=== PATIENT | male | born 1955 | race Caucasian/White ===

== ENCOUNTER 2017-01-14 07:57 | Day surgery (SDC) | payer OTHER ==
[~2017-01-14] VITALS: Ht 182.9 cm; Wt 79.9 kg
[~2017-01-14 07:57] MED LIST: CYCL5TAB PO; LORT5TAB PO; Z.0.NO CURRENT MEDS
[2017-01-14 08:15] VITALS: BP 155/100; PULSE 87; RESP 16; TEMP 97.7; O2SAT 99
[2017-01-14] MEDS ORDERED: SODIUM CHLORID 0.9% 500 ML INJ 500 ML IV SCH (08:15)
[2017-01-14] MEDS ORDERED: LORazepam 1 MG TAB SL SCH (08:15)
[2017-01-14] MEDS ORDERED: POVIDONE IODINE 5% (ANTISEPSIS KIT) 4 APPLICATIONS EACH NARE PRN (08:30)
[2017-01-14] MEDS ORDERED: CHLORHEXIDINE GLUCONATE 2 % 1 PACK (2 CLOTHS) TOPICAL PRN (08:30)
[2017-01-14] MEDS ORDERED: SODIUM CHLORID 0.9% 500 ML IV PRN (08:30)
[2017-01-14] MEDS ORDERED: INSULIN HUMAN REGULAR 1,000 UNITS/10 ML VIAL SQ PRN (08:30)
[2017-01-14] MEDS ORDERED: METOPROLOL TARTRATE 25 MG TAB PO PRN (08:30)
[2017-01-14] MEDS ORDERED: LACTATED RINGER'S 1000 ML IV PRN (08:30)
[2017-01-14] MEDS ORDERED: VITA500T4 PO (08:47)
[2017-01-14] MEDS ORDERED: ATEN25TA PO (08:47)
[2017-01-14 09:13] LABS: BASOPHIL % 0.7 % (0.0-2.0); EOSINOPHIL # 0.4 TH/MM3 (0-0.4); EOSINOPHIL % 5.6 % (0.0-4.0); HEMATOCRIT 41.2 % (39.0-51.0); HEMO FLAGS DIFF FINAL; LYMPH % 24.6 % (9.0-44.0); LYMPHOCYTE # 1.6 TH/MM3 (1.0-4.8); MEAN CELL VOLUME 82.9 FL (80.0-100.0); MEAN CORPUSCULAR HEMOGLOBIN 26.8 PG (27.0-34.0); MEAN CORPUSCULAR HGB CONC 32.4 % (32.0-36.0); MONO % 9.2 % (0.0-8.0); NEUT % 59.9 % (16.0-70.0); PLATELET COUNT 205 TH/MM3 (150-450); RED BLOOD COUNT 4.97 MIL/MM3 (4.50-5.90); RED CELL DISTRIBUTION WIDTH 17.2 % (11.6-17.2); WHITE BLOOD COUNT 6.7 TH/MM3 (4.0-11.0)
[2017-01-14 09:21] LABS: APTT (PATIENT) 26.4 SEC (24.3-30.1); INTERNATIONAL NORMALIZED RATIO 0.9 RATIO
[2017-01-14 09:47] LABS: BICARBONATE 25.1 MEQ/L (21.0-32.0); POTASSIUM 4.2 MEQ/L (3.5-5.1)
[2017-01-14] MEDS ORDERED: PROPOFOL 200 MG/20 ML AMP IV ONE (11:20)
[2017-01-14] MEDS ORDERED: DO NOT ADM ANY ANTICOAGULANT DRUGS PRN (13:00)
--- NOTE | 2017-01-14 13:04 | CATHPROC ---
[email or web address] HIS Report Study Information Study Number Admission Scheduled Start Study Start [id number] Jan 14 2017 7:57AM 01/14/2017 Jan 14 2017 10:40AM [facility] Electrophysiology Study Admit Source Facility Department Other [facility] - Fabrication And Assembly Supervisor Physician and Clinical Staff Initial [employer] Teacher Victoria Muñoz,RT(R) TECH2 Other Anesthesia, STUNT PERSON Other Emily Fierro,BETSY Recorder Alfreda Nash RN [place] Palumbo,ALYSA Procedures Performed Procedure Location (Site) Vessel Name ICE CATHETER INSERT RA Atruim Equipment Time Grades 7 And 8 Visiting Teacher Description Size Mfg Part Number Used/Scraped [id number] 10:50 [employer] PACK, CCL CUSTOM * Used *[id number] 10:50 Fatwire PACER DO, LIMB * 2530 *[id number] Used 12:11 Easy-Point PACER SAFE SHEATH, FR6, 13CM FR 6 [id number] Used [id number] 10:50 [employer] BL[employer],WARM AIR CCL * Used *[id number] 10:51 [employer] MEDICAL CATHETER, JSN, QUAD FR 5 Used *[id number] 10:51 [employer] MEDICAL CATHETER, JSN, QUAD FR 5 Used *[id number] 12:12 [employer] MEDICAL CATHETER, JSN, QUAD FR 5 Used *[id number] 10:50 [employer]RI[employer] MEDICAL ELECTRODE KIT, MARGO X SURFACE * [id number] Used SHEATH, EPS, FR10 FAST CATH 11:43 [employer] MEDICAL FR 10 TRIO [id number] Used TRIO 11:43 [employer] MEDICAL SHEATH, EPS, FR4 FAST CATH FR 4 [id number] Used [id number] 10:51 [employer] MEDICAL SHEATH, EPS, FR5 FAST CATH FR 5 Used *[id number] 11:43 [employer] MEDICAL SHEATH, EPS, FR6 FAST CATH FR 6 [id number] Used 11:43 [employer] MEDICAL SHEATH, EPS, FR7 FAST CATH FR 7 [id number] Used 11:43 [employer] MED[employer] SHEATH, EPS, FR8 FAST CATH FR 8 [id number] Used CATHETER, ACUNAV FR10 ICE [id number] 12:14 TIMMY FR 10 Used (TIMMY) *[id number] [facility] PAD, ELECTROSURGICAL 10:50 * [id number] *[id number] Used SURGICAL GROUNDING (BLUE) Labs Hgb (g/dl) Hct (%) RBC (MIL/MM3) WBC (l/cumm) Platelets (thousands) 11.60-17.00 35.00-51.00 4.00-5.90 4.00-11.00 150.00-450.00 13.0 41 4.9 6.7 205 Glucose (mg/dl) BUN (mg/dl) Creatinine (mg/dl) BUN:Creatinine (1:x) 74.00-106.00 7.00-18.00 0.50-1.30 10.00-20.00 106 17 1.2 14.2 Na (meq/l) K (meq/l) 136.00-145.00 3.50-5.10 39 4.2 INR (PTT:PT) 0.90-1.10 0.9 Medication Medication Total Dose (Bolus/Oral) Medication Total Dosage/Unit 1% XYLOCAINE 40 mL Medications (Bolus/Oral) Medication Time Given Dosage/Unit Administered By Reason 1% XYLOCAINE 01/14/2017 12:00:52 PM 20 mL Brian Addison 20 mL 1% XYLOCAINE given in lab by Brian Addison in Left Groin via Subcutaneous. Ordered by Brian Addison. 1% XYLOCAINE 01/14/2017 12:06:17 PM 20 mL Brian Addison 20 mL 1% XYLOCAINE given in lab by Brian Addison in Right Groin via Subcutaneous. Ordered by Silas Addison. Medication (Drip) Medication Time Given Dosage/Unit Concentration/Unit Diluent (ml) Solution ISUPREL 01/14/2017 12:32:14 PM 2 mcg/min 1 mg 250 NaCl .9 2 mcg/min ISUPREL given in lab by Brian Addison via Peripheral IV. Pump/Drip Flow = 30 ml/hr using Na Cl .9 with a concentration of 1 mg in 250 ml. Ordered by Brian Addison. Initial Case Assessment Cardiovascular HR Rhythm NIBP Chest Pain 56 sr 167/87 0 Edema Present Skin None Warm Dry Circulatory - Right Pulses Dorsalis Pedis 2 Scale (0,1,2,3,4,d) Circulatory - Left Pulses Dorsalis Pedis 2 Scale (0,1,2,3,4,d) Circulatory - Lower Extremities Color Lower Right Color Lower Left Normal Normal Neurological State Oriented to time-place- Alert Moves all extremities person Respiration - General Respiration Rate SpO2 (%) (B/min) 20 100 Final Case Assessment Cardiovascular HR Rhythm NIBP Chest Pain 64 SR 131/69 0 Edema Present Skin color Skin None Normal Warm Dry Neurological State Oriented to time-place- Alert Moves all extremities person Respiration - General Respiration Rate SpO2 (%) O2 (lpm) (B/min) 18 100 4 Chronological Log Time Study Chronological Log 11:15:46 Patient arrived via Bed. 11:17:50 Patient Name, D.O.B, / Armband Verified By R.N. 11:17:51 Consent signed by the physician and the patient and verified by the Fabrication And Assembly Supervisor staff. 11:17:52 Pre-op and post- op instructions given; patient acknowledges understanding of instructions. 11:17:54 Patient has been NPO for More than 6Hrs. 11:17:55 Skin Breakdown- none per pt 11:17:56 Disposable Defibrillator Pads Placed On Patient. 11:17:57 Patient Warmer Placed on the Table. 11:17:57 True Prominences Protected 11:18:00 A # 20 IV was noted in the Antecubital (left). Grade = 0 0.9ns kvo 11:18:01 A # 20 IV was noted in the Antecubital (right). Grade = 0 0.9ns kvo 11:18:03 History and physical on the chart or being dictated. 11:18:04 Table restraints applied according to hospital policy 11:20:40 Anesthesia at bedside. Assumes care of patient. 11:38:48 Bilateral groins prepped with 2% chlorhexidine, and with a 3 min. waiting time. Assessment: Initial Case, HR=56 BPM, Rhythm=sr, HTTQ=712/87 mmhg, Chest Pain=0, Edema=None, Ski n = Warm, Dry Right Pulses: Maxim Ped=2 Left Pulses: Maxim Ped=2 11:45:10 Lower Right Extremities: Color=Normal Lower Left Extremities: Color=Normal Neurological: State=Alert, Ox3, BLANCAS Respiration: Resp=20 B/min, ToA1=498 % 11:48:53 MD paged 11:55:54 MD arrived. Time Out. Correct patient, procedure, procedure equipment, site and side verified with physicia n present. Time 12:00:00 concurred by MD, individual staff and STUNT PERSON. Time Out #2 - Consents verified, patient in correct position, all results are labled and displa yed, safety precautions 12:00:29 taken, antibiotics administered. Time out concurred by MD, individual staff and STUNT PERSON in procedu re 12:00:46 Case Start 12:00:52 20 mL 1% XYLOCAINE given in lab by Brian Addison in Left Groin via Subcutaneous. Ordered by Brian Addison. 12:01:36 Vascular access was obtained in the Fem Vein (left). 12:01:40 Vascular access was obtained in the Fem Vein (left). 12:01:43 Vascular access was obtained in the Fem Vein (left). 12:01:53 Vascular access was obtained in the Fem Art (left). A SHEATH, EPS, FR4 FAST CATH FR 4 was advanced into the Fem Art (left) using the Modified Seldi nger technique. 12:03:48 0.9ns pressure bag connected. 12:04:59 A SHEATH, EPS, FR6 FAST CATH FR 6 was advanced into the Fem Vein (left) using the Modified Seldinger technique. 12:05:09 A SHEATH, EPS, FR7 FAST CATH FR 7 was advanced into the Fem Vein (left) using the Modified Seldinger technique. A SHEATH, EPS, FR10 FAST CATH TRIO FR 10 TRIO was advanced into the Fem Vein (left) using the M odified Seldinger 12:05:22 technique. 12:06:17 20 mL 1% XYLOCAINE given in lab by Brian Addison in Right Groin via Subcutaneous. Ordered b rBian Garcia. 12:06:49 Vascular access was obtained in the Fem Vein (right). 12:07:38 A SAFE SHEATH, FR6, 13CM FR 6 was advanced into the Fem Vein (right) using the Modified Nessa addison technique. 12:08:27 Vascular access was obtained in the Fem Art (right). 12:10:22 A SHEATH, EPS, FR8 FAST CATH FR 8 was advanced into the Fem Art (right) using the Modified Seldinger technique. A CATHETER, JSN, QUAD FR 5 was advanced vis Fem Vein (left) and placed in the CS. Placement wa s visually 12:11:03 confirmed under fluoroscopy. A CATHETER, JSN, QUAD FR 5 was advanced vis Fem Vein (left) and placed in the RVA. Placement w as visually 12:11:39 confirmed under fluoroscopy. A CATHETER, JSN, QUAD FR 5 was advanced vis Fem Vein (left) and placed in the HRA. Placement w as visually 12:12:02 confirmed under fluoroscopy. 12:13:45 CATHETER, ACUNAV FR10 ICE (mydeco) FR 10 Was Postioned. 12:15:14 EPS in progress. 12:25:00 Reference ECG taken 12:26:56 S DEVON TOOK OVER RECORDING FOR MARGE 2 mcg/min ISUPREL given in lab by Brian Addison via Peripheral IV. Pump/Drip Flow = 30 ml/hr u sing NaCl .9 with a 12:32:14 concentration of 1 mg in 250 ml. Ordered by Brian Addison. 12:45:20 D/C ISUPREL 12:55:24 UNABLE TO INDUCE V-TACH 12:56:11 Catheter(s) removed without difficulty Assessment: Final Case, HR=64 BPM, Rhythm=SR, KNHY=747/69 mmhg, Chest Pain=0, Edema=None, [place] r=Normal, Skin = Warm, Dry 12:56:12 Neurological: State=Alert, Ox3, BLANCAS Respiration: Resp=18 B/min, MrO7=194 %, O2=4 lpm 12:57:08 Case End 12:57:09 Sterile dressing applied to site 12:57:10 No case complications noted. 12:57:11 Cine recording checked. 12:57:39 Bedside Report will be given. 12:57:41 DOCU called. Spoke to [facility] 13:02:43 Verbal Stimulation=2 Physical Stimulation=2 Airway=2 Respiration=2 TOTAL=8. (0=absent, 1=l imited, 2=present) 13:09:08 Patient moved to [facility] (formerly [facility]3] End Study - Contrast Media Used In Study Contrast Total Opened (mL) Total Used (mL) Total Wasted (mL) Unspecified 0 0 0 End Study - Maximum Contrast Load Max Contrast Load (mL) 333.0 End Study - Radiation Exposure Fluoro Time (minutes) 1.3 End Study - Patient Disposition Complications Transferred To Interventional Outcome No Telemetry Bed successful
[2017-01-14] MEDS ORDERED: LORazepam 2 MG/ML VIAL IV PRN (13:45)
[2017-01-14] MEDS ORDERED: ATROPINE SULFATE 1 MG/ML VIAL IV PRN (13:45)
[2017-01-14] MEDS ORDERED: oxyCODONE/ACETAMINOPHEN 5 MG/325 MG TAB PO PRN ×2 (13:45)
[2017-01-14] MEDS ORDERED: METOCLOPRAMIDE HCL 10 MG/2 ML VIAL IV PRN (13:45)
[2017-01-14] MEDS ORDERED: SODIUM CHLOR 0.9% 250 ML INJ 250 ML IV PRN (13:45)
[2017-01-14] MEDS ORDERED: LIDOCAINE HCL 1% 50 ML VIAL INFIL PRN (13:45)
[2017-01-14] MEDS ORDERED: ONDANSETRON HCL 4 MG/2 ML VIAL IV PRN (13:45)
[2017-01-14] MEDS ORDERED: BACITRACIN OINT 0.9 GM PKT TOP ONE (14:00)
--- NOTE | 2017-01-14 15:13 | MA ---
cc: DONALD LOTT M.D. DATE: 01/14/2017 PROCEDURE PERFORMED Electrophysiology study, CS cannulation, intracardiac echo, repeat electrophysiology study on Isuprel infusion, 3-D mapping for catheter placement. INDICATION Mr. 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 The risks, the nature and the benefit of the procedure are clearly stated to him. Risks include pneumothorax, cardiac perforation, stroke, need for open heart surgery and even . The patient understood and agreed to proceed. PROCEDURE After written informed consent was obtained, the patient was brought to the EP lab where he was prepped and draped in the usual sterile fashion. Conscious sedation was initiated and maintained throughout the procedure by anesthesiologist. Once sedation was verified, the right and left inguinal area was anesthetized with 2% Xylocaine. Using modified Seldinger technique, the left femoral vein was cannulated on three occasions, three guidewires were advanced, over the wire a 6, 7 and a 10-Bangladeshi Hemaquet was advanced. Then the left femoral artery was cannulated on one occasion, one guidewire was advanced. Over the wire a 4-Bangladeshi Hemaquet was advanced. Then the right femoral vein was cannulated on two occasions, two guidewires were advanced. Over the wire a 6 and a 8-Bangladeshi Hemaquet were advanced. Then under fluoroscopic guidance through the 6 and 7-Bangladeshi Hemaquet, three 5-Bangladeshi Francy curved quadripolar electrophysiology catheter advanced and placed around the His, coronary sinus and right ventricular septal. Basic interval was measured, they were within normal limits. At this point the patient was observed. There was no significant PVCs. I did decrease the sedation. No significant PVCs were observed. Then atrial pacing protocol was performed in the coronary sinus proximal and distal coronary sinus. Atrial pacing by intracardiac echo consists of decremental atrial pacing as well as program stimulation with 410 cycle length and up to one excess stimuli delivered. No tachyarrhythmia was induced. Then ventricular pacing protocol was performed. There was VA conduction. During ventricular pacing protocol no tachyarrhythmia was induced. Then I did initiate Isuprel. The patient was observed. No tachyarrhythmia was induced. No significant PVC observed. It was pretty quiet. Then I did stop the Isuprel infusion. No tachyarrhythmia observed, no significant PVCs. At that point the patient sat for around an hour and a half on the table. Mapping catheter 3-D mapping was used. No tachyarrhythmia was induced. At this point the procedure was complete. The patient is getting anxious on the table because of the light sedation. Intracardiac echo was placed early in the case. There was no pericardial effusion. There is good contractility. Aortic root was seen. Procedure was complete. All catheters and intracardiac echo catheter are going to be removed. The patient is going to be transferred to the recovery room. I will continue the patient on beta-paty. If necessary I will bring the patient in at different time for attempt of ablation. No incident report. The patient tolerated the procedure. Blood loss was minimal. 1. Electrocardiogram. At baseline the patient was in sinus rhythm. Postprocedure electrocardiogram was unchanged. 2. Basic interval. Base cycle length was around 900 milliseconds. 3. Atrial pacing protocol. Wenckebach was around 280 milliseconds. ERP of the node 600-240 milliseconds. No tachyarrhythmia was induced. 4. Ventricular pacing protocol. There was VA conduction. No tachyarrhythmia was induced. CONCLUSION Negative electrophysiology study for supraventricular tachyarrhythmia. No significant PVCs observed. COMMENT AND RECOMMENDATION The patient is going to be transferred to the recovery room. Will be observed, can be discharged home later today. Medical therapy will be added. MD LJ Santos/MENDY /1:31 PM /2:45 PM
--- NOTE | 2017-01-14 16:42 | EKG ---
Date Performed: 01/14/2017 Time Performed: 08:42:44 PTAGE: 61 years EKG: Sinus bradycardia. Septal T wave changes are nonspecific Borderline ECG NO PREVIOUS TRACING DOCTOR: Mandeep Wei Interpretating Date/Time 01/14/2017 16:41:06
[2017-01-14] MEDS ORDERED: MIDAZOLAM HCL 2 MG/2 ML VIAL ONE (17:56)
[2017-01-15] MEDS ORDERED: ATENOLOL 25 MG TAB PO SCH (09:00)
[2017-01-15] MEDS ORDERED: CYANOCOBALAMIN 1,000 MCG TAB PO SCH (09:00)
== END 2017-01-14 16:00 | disposition home or self-care (01) ==
LOC: HDOC 07:57 → HDIC 07:57 → HDOC 16:00
PROVIDERS: ATTEND Internal Medicine Interventional Cardiology
DX: I47.2 Ventricular tachycardia (principal); I49.3 Ventricular premature depolarization
CPT/HCPCS: 00537; 80048; 85025; 85610; 85730; 93005; 93620; 93623; 93662; C1730; C1732; C1759; J2250; J3010